=== PATIENT | female | born 2000 | race Hispanic/Latino ===

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

== ENCOUNTER 2024-07-07 09:38 | Emergency (ER) | payer OTHER, SELFPAY ==
[2024-07-07] MEDS ORDERED: Ibuprofen 600 MG TAB ONE (10:47)
[2024-07-07] MEDS ORDERED: Acetaminophen 500 MG TAB ONE (10:47)
[2024-07-07] MEDS ORDERED: Boostrix 0.5 ML (Tdap) VIAL (>/=7 yrs of age) ONE (10:48)
== END 2024-07-07 11:30 | disposition home or self-care (01) ==
LOC: MADERS 09:38
DX: S63.92XA Sprain of unspecified part of left wrist and hand, initial encounter (principal); Z23 Encounter for immunization; V44.6XXA Car passenger injured in collision with heavy transport vehicle or bus in traffic accident, initial encounter; Y93.89 Activity, other specified; Y92.410 Unspecified street and highway as the place of occurrence of the external cause
CPT/HCPCS: 90471; 90715